=== PATIENT | male | born 1945 | race Caucasian/White ===

== ENCOUNTER 2017-07-20 10:01 | Inpatient (IN) | payer OTHER ==
[~2017-07-20] VITALS: Ht 182.9 cm; Wt 48.2 kg
[~2017-07-20 10:01] MED LIST: ADVAIR HFA120 INHALA IH; ALBUTEROL2.5 MG/3 M IH; ALDACTAZIDE 251 EACH PO; AMLODIPINE BES2.5 MG PO; AMOX TR-K CLV1 EAC4 PO; ASPIRIN EC325 MG PO; ASPIRIN325 MG PO; BRIMONIDINE TART5 ML BOTH EYES; CORDARONE200 MG PO; ELIQUIS5 MG PO; LATANOPROST2.5 ML BOTH EYES; LEVAQUIN750 MG PO; LORATADINE10 M2 PO; PREDNISONE10 MG PO; PREDNISONE20 MG PO; PREDNISONE5 MG PO; PREDNISONE50 MG PO; PROVENTIL HFA6.7 GM IH; PROVENTIL,2.5 MG/3 M IH; SALSALATE500 MG PO; SPIRIVA1 INHALATI IH; STRIVERDI RESPIM4 GM IH; VENTOLIN HFA18 GM IH
[2017-07-20] MEDS ORDERED: LATANOPROST2.5 ML BOTH EYES (10:23)
[2017-07-20] MEDS ORDERED: DORZOLAMIDE HCL10 ML BOTH EYES (10:24)
[2017-07-20] MEDS ORDERED: SPIRIVA RESPIMAT4 GM IH (10:24)
[2017-07-20] MEDS ORDERED: STRIVERDI RESPIM4 GM IH (10:25)
[2017-07-20] MEDS ORDERED: PROVENTIL,2.5 MG/0.5 IH (10:25)
[2017-07-20 10:43] LABS: ADD MIUA? YES; BILIRUBIN NEGATIVE; BLOOD MODERATE; COLOR YELLOW ((YELLOW)); GLUCOSE (STRIP) NEGATIVE; KETONES 5; LEUKOCYTES LARGE; NITRITE POSITIVE; PROTEIN (STRIP) 100; SPECIFIC GRAVITY 1.019 (1.000-1.030); UROBILINOGEN 0.2 MG/DL (0.2-1.0)
[2017-07-20 10:45] LABS: BASOPHIL COUNT 0.1 K/uL (0-0.1); EOSINOPHIL (%) 0.5 % (0-5); EOSINOPHIL COUNT 0.1 K/uL (0-0.3); HEMATOCRIT 45.7 % (38.0-50.0); IMMATURE GRANULOCYTE (%) 0.3 % (0.0-0.7); IMMATURE GRANULOCYTE COUNT 0.1 K/uL; INSTRUMENT ABS NEUTROPHIL CT 13.5 K/uL; LYMPHOCYTE COUNT 0.6 K/uL (1.0-2.8); MCH 33.7 PG (29.0-34.0); MCHC 30.2 G/DL (30.0-36.0); MCV 111.7 FL (86-99); MEAN PLAT.VOLUME 9.7 uM^3 (9.0-12.4); MONOCYTE COUNT 0.1 K/uL (0-0.8); NEUTROPHIL (%) 93.9 % (45-76); NEUTROPHIL COUNT 13.5 K/uL (1.8-6.4); PLATELET COUNT 194 K/uL (156-360); RBC DIS.WIDTH-CV 11.9 % (11.8-14.6); RBC DIS.WIDTH-SD 49.2 % (39-53); RED BLOOD COUNT 4.09 M/uL (4.00-5.50); WHITE BLOOD COUNT 14.4 K/uL (4.1-10.2)
[2017-07-20 10:47] LABS: INTER. NORMALIZED RATIO 1.2; PROTHROMBIN TIME 13.4 SEC (10.2-12.9)
[2017-07-20 10:48] LABS: BASE EXCESS 14.3 mEq/L (-3 to +3); BICARBONATE 43.5 mEq/L (22-26); CARBOXY HGB 2.6 % (0-5); METHEMOGLOBIN 1.8 % (0-1.5); PCO2 77 mm Hg (35-45); PO2 100 mm Hg (80-100); SITE Y; pH 7.36 (7.35-7.45)
[2017-07-20 10:49] LABS: PTT 29.7 SEC (25-37)
[2017-07-20 10:49] LABS: COMMENTS - BLOOD GASES C+; DEVICE MASK VENT; FI02 35 %; MODE PS
[2017-07-20 10:49] LABS: BACTERIA RARE /HPF; EPITHELIAL CELLS NONE SEEN /HPF; HYALINE CASTS 0-5 /LPF; MUCUS TRACE /LPF; UCUL ADDED? YES; UNCLASSIFIED CASTS 0-5 /LPF; WHITE BLOOD CELLS TNTC /HPF (0-5)
[2017-07-20 10:50] LABS: PEEP 7 CM/H20; PRES. SUPPORT 10 CM/H2O
[2017-07-20 10:54] LABS: CHLORIDE 96 mEq/L (99-109); POTASSIUM 4.3 mEq/L (3.7-5.4); SODIUM 147 mEq/L (136-147)
[2017-07-20 10:56] LABS: GLUCOSE 124 mg/dL (70-99)
[2017-07-20 10:57] LABS: ANION GAP 14 MEQ/L (2-14)
[2017-07-20 11:00] LABS: GFR ESTIMATE (CALCULATED) > 59 mL/min/
[2017-07-20 11:01] LABS: TROP-I INTERPRETATION NEGATIVE; TROPONIN-I 0.01 ng/mL (0.0-0.30); UREA NITROGEN (BUN) 20 mg/dL (9-23)
[2017-07-20] MEDS ORDERED: PROVENTIL HFA6.7 GM IH (11:44)
[2017-07-20] MEDS ORDERED: TYLENOL EXTRA500 MG PO (11:45)
[2017-07-20] MEDS ORDERED: ELIQUIS5 MG PO (11:54)
[2017-07-20 13:28] LABS: HEMATOLOGY COMMENT 1 SMEAR COMPATIBLE
[2017-07-20 15:46] VITALS: BP 96/51
[2017-07-20 17:50] LABS: TROP-I INTERPRETATION NEGATIVE; TROPONIN-I 0.02 ng/mL (0.0-0.30)
[2017-07-20 20:00] VITALS: BP 110/63
[2017-07-20 22:43] VITALS: BP 106/53
[2017-07-20 23:25] LABS: TROP-I INTERPRETATION NEGATIVE; TROPONIN-I < 0.01 ng/mL (0.0-0.30)
[2017-07-21] VITALS (7 sets, daily range): BP systolic 89–136; BP diastolic 45–72
[2017-07-21 04:52] LABS: MCH 33.5 PG (29.0-34.0); MCHC 29.7 G/DL (30.0-36.0); MCV 112.8 FL (86-99); MEAN PLAT.VOLUME 10.1 uM^3 (9.0-12.4); PLATELET COUNT 171 K/uL (156-360); RBC DIS.WIDTH-CV 11.9 % (11.8-14.6); RED BLOOD COUNT 3.28 M/uL (4.00-5.50); WHITE BLOOD COUNT 18.8 K/uL (4.1-10.2)
[2017-07-21 04:54] LABS: CHLORIDE 100 mEq/L (99-109); POTASSIUM 4.7 mEq/L (3.7-5.4); SODIUM 142 mEq/L (136-147)
[2017-07-21 04:56] LABS: GLUCOSE 107 mg/dL (70-99)
[2017-07-21 04:58] LABS: ANION GAP 11 MEQ/L (2-14)
[2017-07-21 05:00] LABS: GFR ESTIMATE (CALCULATED) > 59 mL/min/
[2017-07-21 05:01] LABS: UREA NITROGEN (BUN) 22 mg/dL (9-23)
[2017-07-22 03:10] VITALS: BP 116/78
[2017-07-22 05:32] LABS: HEMATOCRIT 42.7 % (38.0-50.0); MCH 32.8 PG (29.0-34.0); MCHC 28.8 G/DL (30.0-36.0); MCV 113.9 FL (86-99); MEAN PLAT.VOLUME 10.4 uM^3 (9.0-12.4); PLATELET COUNT 159 K/uL (156-360); RBC DIS.WIDTH-CV 12.1 % (11.8-14.6); RBC DIS.WIDTH-SD 51.6 % (39-53); RED BLOOD COUNT 3.75 M/uL (4.00-5.50); WHITE BLOOD COUNT 16.5 K/uL (4.1-10.2)
[2017-07-22 05:54] LABS: ANION GAP 6 MEQ/L (2-14); CHLORIDE 98 MEQ/L (99-109); GFR ESTIMATE (CALCULATED) > 59 mL/min/; GLUCOSE 98 mg/dL (70-99); POTASSIUM 4.8 MEQ/L (3.7-5.4); SAMPLE HEMOLYSIS CHECK 1; SAMPLE ICTERIC CHECK 0; SAMPLE LIPEMIA CHECK 0; SODIUM 138 MEQ/L (136-147); UREA NITROGEN (BUN) 17 mg/dL (9-23)
[2017-07-22 07:29] VITALS: BP 140/66
[2017-07-22 11:16] VITALS: BP 168/79
[2017-07-22 15:23] VITALS: BP 126/76
[2017-07-22 19:25] VITALS: BP 131/67
[2017-07-23] VITALS (7 sets, daily range): BP systolic 105–135; BP diastolic 47–70
[2017-07-24 08:00] VITALS: BP 120/58
[2017-07-24 12:00] VITALS: BP 117/60
[2017-07-24 14:15] VITALS: BP 112/59
[2017-07-24 15:46] VITALS: BP 127/63
[2017-07-24 19:53] VITALS: BP 135/68
[2017-07-24 23:19] VITALS: BP 126/67
[2017-07-25] VITALS (17 sets, daily range): BP systolic 90–166; BP diastolic 54–87
[2017-07-25 09:13] LABS: BASE EXCESS 17.1 mEq/L (-3 to +3); CARBOXY HGB 2.3 % (0-5); METHEMOGLOBIN 1.8 % (0-1.5); PO2 91 mm Hg (80-100)
[2017-07-25 09:14] LABS: BICARBONATE 49.4 mEq/L (22-26); PCO2 110 mm Hg (35-45); pH 7.26 (7.35-7.45)
[2017-07-25 09:15] LABS: COMMENTS - BLOOD GASES A+C+; DEVICE NC; O2 FLOW 3 L/MIN; SITE RR; TOTAL RESP RATE 28 resp/min
[2017-07-25 11:57] LABS: METH RESISTANT S AUREUS PCR NEGATIVE (NEGATIVE)
[2017-07-25 11:59] LABS: PROBE CHECK PASS; SPECIMEN PROCESSING CONTROL PASS
[2017-07-26] VITALS (20 sets, daily range): BP systolic 103–170; BP diastolic 53–106
[2017-07-26 05:09] LABS: EOSINOPHIL (%) 0 % (0-5); HEMATOCRIT 39.9 % (38.0-50.0); IMMATURE GRANULOCYTE (%) 0.5 % (0.0-0.7); INSTRUMENT ABS NEUTROPHIL CT 3.3 K/uL; LYMPHOCYTE COUNT 0.5 K/uL (1.0-2.8); MCH 33.3 PG (29.0-34.0); MCHC 30.6 G/DL (30.0-36.0); MEAN PLAT.VOLUME 10.2 uM^3 (9.0-12.4); MONOCYTE COUNT 0.1 K/uL (0-0.8); NEUTROPHIL (%) 83.2 % (45-76); NEUTROPHIL COUNT 3.3 K/uL (1.8-6.4); RBC DIS.WIDTH-CV 11.2 % (11.8-14.6); RBC DIS.WIDTH-SD 45.2 % (39-53); RED BLOOD COUNT 3.66 M/uL (4.00-5.50)
[2017-07-26 05:14] LABS: PLATELET COUNT 224 K/uL (156-360)
[2017-07-26 05:19] LABS: CHLORIDE 91 mEq/L (99-109); MAGNESIUM 1.9 mg/dL (1.3-2.7); POTASSIUM 4.9 mEq/L (3.7-5.4); SODIUM 140 mEq/L (136-147)
[2017-07-26 05:21] LABS: GLUCOSE 135 mg/dL (70-99)
[2017-07-26 05:22] LABS: ANION GAP 9 MEQ/L (2-14)
[2017-07-26 05:25] LABS: GFR ESTIMATE (CALCULATED) > 59 mL/min/; UREA NITROGEN (BUN) 21 mg/dL (9-23)
[2017-07-26 05:36] LABS: BASE EXCESS 19.5 mEq/L (-3 to +3); BICARBONATE 50.9 mEq/L (22-26); CARBOXY HGB 2.3 % (0-5); COMMENTS - BLOOD GASES C+A+; DEVICE NC; METHEMOGLOBIN 1.9 % (0-1.5); O2 FLOW 2 L/MIN; PCO2 101 mm Hg (35-45); PO2 80 mm Hg (80-100); SITE RR; TOTAL RESP RATE 14 resp/min; pH 7.31 (7.35-7.45)
[2017-07-27] VITALS (13 sets, daily range): BP systolic 107–139; BP diastolic 67–87
[2017-07-27 05:11] LABS: BASE EXCESS 20.6 mEq/L (-3 to +3); BICARBONATE 50.8 mEq/L (22-26); CARBOXY HGB 2.2 % (0-5); COMMENTS - BLOOD GASES C+A+; DEVICE NC; METHEMOGLOBIN 1.7 % (0-1.5); O2 FLOW 1 L/MIN; PCO2 90 mm Hg (35-45); PO2 85 mm Hg (80-100); SITE RR; pH 7.36 (7.35-7.45)
[2017-07-27 05:44] LABS: EOSINOPHIL (%) 0 % (0-5); HEMATOCRIT 38.3 % (38.0-50.0); IMMATURE GRANULOCYTE (%) 0.4 % (0.0-0.7); INSTRUMENT ABS NEUTROPHIL CT 8.8 K/uL; LYMPHOCYTE COUNT 0.6 K/uL (1.0-2.8); MCH 32.7 PG (29.0-34.0); MCV 108.8 FL (86-99); MEAN PLAT.VOLUME 10.2 uM^3 (9.0-12.4); MONOCYTE (%) 3.1 % (3-12); MONOCYTE COUNT 0.3 K/uL (0-0.8); NEUTROPHIL (%) 90.8 % (45-76); NEUTROPHIL COUNT 8.8 K/uL (1.8-6.4); PLATELET COUNT 273 K/uL (156-360); RBC DIS.WIDTH-CV 11.5 % (11.8-14.6); RBC DIS.WIDTH-SD 46.2 % (39-53); RED BLOOD COUNT 3.52 M/uL (4.00-5.50); WHITE BLOOD COUNT 9.7 K/uL (4.1-10.2)
[2017-07-27 06:26] LABS: ANION GAP ND MEQ/L (2-14); CARBON DIOXIDE (BICARBONATE) > 40.0 MEQ/L (20-31); CHLORIDE 92 MEQ/L (99-109); GFR ESTIMATE (CALCULATED) > 59 mL/min/; GLUCOSE 165 mg/dL (70-99); MAGNESIUM 2.1 mg/dl (1.3-2.7); POTASSIUM 4.5 MEQ/L (3.7-5.4); SAMPLE HEMOLYSIS CHECK 0; SAMPLE ICTERIC CHECK 0; SAMPLE LIPEMIA CHECK 0; SODIUM 139 MEQ/L (136-147); UREA NITROGEN (BUN) 26 mg/dL (9-23)
[2017-07-28] VITALS: BP 130/84
[2017-07-28 04:00] VITALS: BP 98/62
[2017-07-28 08:00] VITALS: BP 112/60
[2017-07-28 12:00] VITALS: BP 129/78
[2017-07-28 16:00] VITALS: BP 114/59
[2017-07-28 20:00] VITALS: BP 126/79
[2017-07-29] VITALS: BP 106/69
[2017-07-29 04:00] VITALS: BP 103/52
[2017-07-29 08:00] VITALS: BP 121/75
[2017-07-29] MEDS ORDERED: ROCEPHIN1 GM/50 ML IV (09:44)
[2017-07-29] MEDS ORDERED: MEDROL DOSEPAK4 MG PO (09:45)
[2017-07-29] MEDS ORDERED: TAMSULOSIN HCL0.4 MG PO (09:45)
[2017-07-29] MEDS ORDERED: DOCUSATE SODIU100 MG PO (09:45)
== END 2017-07-29 11:50 | disposition designated cancer center or children's hospital (05) | DRG 871 ==
LOC: EME 10:01 → 3EAST 12:33 → 4WEST 12:33 → 4EAST 12:33 → EDOF 12:33 → ENRESERV 12:34 → 4EAST 15:32 → ENRESERV 07-21 09:59 → 3EAST 07-24 14:05 → ENRESERV 07-25 09:21 → CANRESERV 07-25 09:21 → ENRESERV 07-25 09:27 → 4WEST 07-25 09:46
PROVIDERS: Emergency Medicine; Hospitalist; Internal Medicine; Specialist
PROC: 5A09357 Assistance with Respiratory Ventilation, Less than 24 Consecutive Hours, Continuous Positive Airway Pressure (ICD-10-PCS; principal; 2017-07-20)
DX: A41.51 Sepsis due to Escherichia coli [E. coli] (principal); J96.21 Acute and chronic respiratory failure with hypoxia; J96.22 Acute and chronic respiratory failure with hypercapnia; N39.0 Urinary tract infection, site not specified; J44.1 Chronic obstructive pulmonary disease with (acute) exacerbation; F10.10 Alcohol abuse, uncomplicated; R64 Cachexia; R62.7 Adult failure to thrive; Z68.1 Body mass index [BMI] 19.9 or less, adult; N20.0 Calculus of kidney; I48.0 Paroxysmal atrial fibrillation; I95.9 Hypotension, unspecified; N21.0 Calculus in bladder; I71.4 Abdominal aortic aneurysm, without rupture; R32 Unspecified urinary incontinence; I10 Essential (primary) hypertension; R31.0 Gross hematuria; Z66 Do not resuscitate; H40.9 Unspecified glaucoma; K59.00 Constipation, unspecified; Z79.01 Long term (current) use of anticoagulants; Z86.74 Personal history of sudden cardiac arrest; Z87.440 Personal history of urinary (tract) infections; Z87.891 Personal history of nicotine dependence; Z91.19 Patient's noncompliance with other medical treatment and regimen; Z99.81 Dependence on supplemental oxygen
CPT/HCPCS: 36600; 71010; 71250; 74150; 80048; 81003; 82607; 82746; 82803; 83605; 83735; 83880; 84100; 84484; 85025; 85027; 85610; 85730; 87040; 87070; 87077; 87086; 87186; 87205; 87641; 87801; 93005; 94002; 94003; 94640; 94640 76; 94664; 94760; 94799; 99202; 99281; 99285; J0692; J0696; J2270; J2920; J2930; J3475; J7030; J7050; J7512; J7644; S0028

== ENCOUNTER 2017-08-31 23:04 | Inpatient (IN) | payer OTHER ==
[~2017-08-31] VITALS: Ht 182.9 cm; Wt 44.0 kg
[~2017-08-31 23:04] MED LIST changes: +DOCUSATE SODIU100 MG PO; +DORZOLAMIDE HCL10 ML BOTH EYES; +MEDROL DOSEPAK4 MG PO; +PROVENTIL,2.5 MG/0.5 IH; +ROCEPHIN1 GM/50 ML IV; +SPIRIVA RESPIMAT4 GM IH; +TAMSULOSIN HCL0.4 MG PO; +TYLENOL EXTRA500 MG PO
[2017-09-01 00:10] LABS: BASOPHIL COUNT 0.1 K/uL (0-0.1); EOSINOPHIL (%) 3.7 % (0-5); EOSINOPHIL COUNT 0.2 K/uL (0-0.3); HEMATOCRIT 40.7 % (38.0-50.0); IMMATURE GRANULOCYTE (%) 0.3 % (0.0-0.7); INSTRUMENT ABS NEUTROPHIL CT 3.7 K/uL; LYMPHOCYTE COUNT 1.3 K/uL (1.0-2.8); MCH 33.1 PG (29.0-34.0); MCHC 30.2 G/DL (30.0-36.0); MCV 109.4 FL (86-99); MEAN PLAT.VOLUME 9.2 uM^3 (9.0-12.4); MONOCYTE (%) 10.3 % (3-12); MONOCYTE COUNT 0.6 K/uL (0-0.8); NEUTROPHIL (%) 63.5 % (45-76); NEUTROPHIL COUNT 3.7 K/uL (1.8-6.4); PLATELET COUNT 319 K/uL (156-360); RBC DIS.WIDTH-CV 11.5 % (11.8-14.6); RBC DIS.WIDTH-SD 46.2 % (39-53); RED BLOOD COUNT 3.72 M/uL (4.00-5.50); WHITE BLOOD COUNT 5.9 K/uL (4.1-10.2)
[2017-09-01 00:15] LABS: BASE EXCESS 17.9 mEq/L (-3 to +3); BICARBONATE 50.4 mEq/L (22-26); CARBOXY HGB 2.6 % (0-5); METHEMOGLOBIN 1.2 % (0-1.5); PO2 81 mm Hg (80-100)
[2017-09-01 00:16] LABS: COMMENTS - BLOOD GASES A+C+; DEVICE NC; O2 FLOW 2 L/MIN; PCO2 115 mm Hg (35-45); SITE RR; TOTAL RESP RATE 27 resp/min; pH 7.25 (7.35-7.45)
[2017-09-01 00:18] LABS: CHLORIDE 93 mEq/L (99-109); POTASSIUM 4.4 mEq/L (3.7-5.4); SODIUM 139 mEq/L (136-147)
[2017-09-01 00:19] LABS: GLUCOSE 102 mg/dL (70-99)
[2017-09-01 00:21] LABS: ANION GAP 3 MEQ/L (2-14)
[2017-09-01 00:23] LABS: GFR ESTIMATE (CALCULATED) > 59 mL/min/
[2017-09-01 00:24] LABS: CARBON DIOXIDE (BICARBONATE) > 40.0 mEq/L (20-31); UREA NITROGEN (BUN) 15 mg/dL (9-23)
[2017-09-01 00:26] LABS: D-DIMER ELISA < 150.00 ng/mLDDU (<230)
[2017-09-01 00:30] LABS: TROP-I INTERPRETATION NEGATIVE; TROPONIN-I < 0.01 ng/mL (0.0-0.30)
[2017-09-01 05:15] VITALS: BP 100/54
[2017-09-01 07:19] LABS: METH RESISTANT S AUREUS PCR NEGATIVE (NEGATIVE); PROBE CHECK PASS; SPECIMEN PROCESSING CONTROL PASS
[2017-09-01 07:30] VITALS: BP 117/62
[2017-09-01] MEDS ORDERED: MIRALAX17 GM PO (08:02)
[2017-09-01 09:30] LABS: BASE EXCESS 17.5 mEq/L (-3 to +3); BICARBONATE 47.9 mEq/L (22-26); CARBOXY HGB 2.6 % (0-5); COMMENTS - BLOOD GASES A+C+; DEVICE NC; METHEMOGLOBIN 1.4 % (0-1.5); O2 FLOW 1.5 L/MIN; PCO2 93 mm Hg (35-45); PO2 74 mm Hg (80-100); SITE RR; pH 7.32 (7.35-7.45)
[2017-09-01 12:21] VITALS: BP 161/98
[2017-09-01 16:00] VITALS: BP 129/74
[2017-09-01 20:52] VITALS: BP 106/51
[2017-09-01 22:50] VITALS: BP 100/62
[2017-09-02 03:19] VITALS: BP 108/57
[2017-09-02 07:08] VITALS: BP 120/60
[2017-09-02 07:51] LABS: TROP-I INTERPRETATION NEGATIVE; TROPONIN-I < 0.01 ng/mL (0.0-0.30)
[2017-09-02 09:01] VITALS: BP 106/54
[2017-09-02 11:00] VITALS: BP 108/57
[2017-09-02 15:46] VITALS: BP 115/60
[2017-09-02 19:42] VITALS: BP 104/51
[2017-09-03] VITALS (7 sets, daily range): BP systolic 101–126; BP diastolic 51–78
[2017-09-04 04:41] VITALS: BP 101/59
[2017-09-04 08:37] VITALS: BP 119/64
[2017-09-04 12:30] VITALS: BP 136/70
[2017-09-04] MEDS ORDERED: PREDNISONE10 MG PO (14:22)
[2017-09-04 15:57] LABS: BASE EXCESS 18.2 mEq/L (-3 to +3); BICARBONATE 47.2 mEq/L (22-26); CARBOXY HGB 2.6 % (0-5); METHEMOGLOBIN 1.5 % (0-1.5); PO2 72 mm Hg (80-100); pH 7.39 (7.35-7.45)
[2017-09-04 15:58] LABS: COMMENTS - BLOOD GASES C+; DEVICE NC; O2 FLOW 1 L/MIN; PCO2 78 mm Hg (35-45); SITE LR; TOTAL RESP RATE 18 resp/min
[2017-09-04 16:23] VITALS: BP 128/74
== END 2017-09-04 18:06 | disposition designated cancer center or children's hospital (05) | DRG 189 ==
LOC: EME → EDBD 23:04 → EME 23:04 → EDOF 09-01 03:22 → 4EAST 09-01 03:22 → ENRESERV 09-01 03:25 → EDOF 09-01 03:53 → ENRESERV 09-01 04:00 → 4EAST 09-01 04:59
PROVIDERS: Emergency Medicine; Hospitalist
PROC: 5A09357 Assistance with Respiratory Ventilation, Less than 24 Consecutive Hours, Continuous Positive Airway Pressure (ICD-10-PCS; principal; 2017-09-02)
DX: J96.22 Acute and chronic respiratory failure with hypercapnia (principal); E44.0 Moderate protein-calorie malnutrition; J44.1 Chronic obstructive pulmonary disease with (acute) exacerbation; E87.2 Acidosis; Z87.891 Personal history of nicotine dependence; I48.0 Paroxysmal atrial fibrillation; I10 Essential (primary) hypertension; J96.21 Acute and chronic respiratory failure with hypoxia; Z99.81 Dependence on supplemental oxygen; H40.9 Unspecified glaucoma; F41.9 Anxiety disorder, unspecified; Z68.1 Body mass index [BMI] 19.9 or less, adult; Z79.01 Long term (current) use of anticoagulants; R07.89 Other chest pain; K59.00 Constipation, unspecified
CPT/HCPCS: 36600; 71010; 80048; 82803; 83880; 84484; 85025; 85379; 87081; 87641; 93005; 94640; 94640 76; 94644; 94660; 94799; 99202; 99281; 99285; J0456; J2270; J3475; J7030; J7512; S0028

== ENCOUNTER 2017-09-25 19:54 | Inpatient (IN) | payer OTHER ==
[~2017-09-25] VITALS: Ht 180.3 cm; Wt 41.6 kg
[~2017-09-25 19:54] MED LIST changes: +MIRALAX17 GM PO
[2017-09-25 20:53] LABS: HEMATOCRIT 45.1 % (38.0-50.0); HEMOGLOBIN 13.4 G/DL (12.5-16.6); MCH 32.6 PG (29.0-34.0); MCHC 29.7 G/DL (30.0-36.0); MCV 109.7 FL (86-99); PLATELET COUNT 278 K/uL (156-360); RBC DIS.WIDTH-CV 11.8 % (11.8-14.6); RED BLOOD COUNT 4.11 M/uL (4.00-5.50); WHITE BLOOD COUNT 9.4 K/uL (4.1-10.2)
[2017-09-25 20:56] LABS: VENOUS PCO2 123 mm Hg (41-51)
[2017-09-25 20:57] LABS: CARBON DIOXIDE (BICARBONATE) > 40.0 MEQ/L (20-31)
[2017-09-25 21:06] LABS: CHLORIDE 92 mEq/L (99-109); POTASSIUM 4.6 mEq/L (3.7-5.4); SODIUM 142 mEq/L (136-147)
[2017-09-25 21:08] LABS: GLUCOSE 147 mg/dL (70-99)
[2017-09-25 21:12] LABS: CREATININE 0.7 mg/dL (0.6-1.3); GFR ESTIMATE (CALCULATED) > 59 mL/min/ (58.99-99999)
[2017-09-25 21:13] LABS: UREA NITROGEN (BUN) 22 mg/dL (9-23)
[2017-09-25 21:15] LABS: TROP-I INTERPRETATION NEGATIVE; TROPONIN-I 0.01 ng/mL (0.0-0.30)
[2017-09-25 21:17] LABS: CARBON DIOXIDE (BICARBONATE) > 40.0 mEq/L (20-31)
[2017-09-25 21:26] LABS: CARBOXY HGB 2.5 % (0-5); METHEMOGLOBIN 1.2 % (0-1.5)
[2017-09-25 21:27] LABS: COMMENTS - BLOOD GASES A+C+; DEVICE HHFNC; FI02 60 %; O2 FLOW 30 L/MIN; PCO2 > 126 mm Hg (35-45); PO2 119 mm Hg (80-100); SITE RR; TOTAL RESP RATE 29 resp/min; pH 7.17 (7.35-7.45)
[2017-09-25 23:00] VITALS: BP 73/44
[2017-09-25 23:19] VITALS: BP 85/44
[2017-09-26] VITALS (21 sets, daily range): BP systolic 70–128; BP diastolic 43–81
[2017-09-26 06:20] LABS: BASE EXCESS 17.9 mEq/L (-3 to +3); BICARBONATE 46.1 mEq/L (22-26); CARBOXY HGB 2.3 % (0-5); METHEMOGLOBIN 1.2 % (0-1.5); PCO2 71 mm Hg (35-45); PO2 76 mm Hg (80-100); SITE RB; pH 7.42 (7.35-7.45)
[2017-09-26 06:21] LABS: COMMENTS - BLOOD GASES C+; DEVICE NC; O2 FLOW 5 L/MIN; TOTAL RESP RATE 24 resp/min
[2017-09-27] VITALS (15 sets, daily range): BP systolic 87–119; BP diastolic 41–75
[2017-09-28] VITALS (11 sets, daily range): BP systolic 81–123; BP diastolic 45–74
[2017-09-28 08:05] LABS: HEMATOCRIT 38.8 % (38.0-50.0); MCH 32.6 PG (29.0-34.0); MCHC 29.4 G/DL (30.0-36.0); MCV 110.9 FL (86-99); PLATELET COUNT 229 K/uL (156-360); RBC DIS.WIDTH-CV 11.9 % (11.8-14.6); RBC DIS.WIDTH-SD 48.6 % (39-53); WHITE BLOOD COUNT 8.6 K/uL (4.1-10.2)
[2017-09-28 08:07] LABS: HEMOGLOBIN 11.4 G/DL (12.5-16.6)
[2017-09-28 08:20] LABS: CARBON DIOXIDE (BICARBONATE) > 40.0 MEQ/L (20-31); CHLORIDE 95 MEQ/L (99-109); CREATININE 0.5 MG/DL (0.6-1.3); GFR ESTIMATE (CALCULATED) > 59 mL/min/ (58.99-99999); GLUCOSE 72 mg/dL (70-99); POTASSIUM 4.4 MEQ/L (3.7-5.4); SODIUM 142 MEQ/L (136-147); UREA NITROGEN (BUN) 25 mg/dL (9-23)
[2017-09-28] MEDS ORDERED: DILTIAZEM 24HR120 MG PO (14:59)
[2017-09-28] MEDS ORDERED: PREDNISONE20 MG PO (14:59)
== END 2017-09-28 18:51 | disposition short-term general hospital (02) | DRG 190 ==
LOC: EME → EDBD 19:54 → EDOF 21:38 → 4WEST 21:38 → ENRESERV 21:40 → 4WEST 22:38 → CANRESERV 09-28 09:21 → ENRESERV 09-28 09:21 → 4WEST 09-28 18:51
PROVIDERS: Emergency Medicine; Internal Medicine; Internal Medicine Critical Care Medicine
PROC: 5A09457 Assistance with Respiratory Ventilation, 24-96 Consecutive Hours, Continuous Positive Airway Pressure (ICD-10-PCS; principal; 2017-09-25)
DX: J43.9 Emphysema, unspecified (principal); J96.21 Acute and chronic respiratory failure with hypoxia; J96.22 Acute and chronic respiratory failure with hypercapnia; H40.9 Unspecified glaucoma; R91.1 Solitary pulmonary nodule; I48.0 Paroxysmal atrial fibrillation; F41.9 Anxiety disorder, unspecified; I10 Essential (primary) hypertension; R00.0 Tachycardia, unspecified; R64 Cachexia; Z68.1 Body mass index [BMI] 19.9 or less, adult; I25.2 Old myocardial infarction; Z86.74 Personal history of sudden cardiac arrest; Z87.891 Personal history of nicotine dependence; Z99.81 Dependence on supplemental oxygen
CPT/HCPCS: 36600; 71010; 80048; 82803; 83605; 83880; 84484; 85027; 87040; 87641; 93005; 94002; 94640; 94640 76; 94760; 94799; 99202; 99281; 99285; J1160; J2543; J7050; J7120; J7512; J7644; S0028